=== PATIENT | female | born 1980 | race Native Hawaiian/Other Pacific Islander ===

== ENCOUNTER 2017-02-09 13:27 | Emergency (ER) | payer OTHER ==
[~2017-02-09] VITALS: Ht 149.9 cm; Wt 98.0 kg
[2017-02-09] MEDS ORDERED: DIOV320T6 PO (13:49)
[2017-02-09] MEDS ORDERED: JANU25TA PO (13:50)
[2017-02-09] MEDS ORDERED: SING10TA32 PO (13:50)
[2017-02-09] MEDS ORDERED: CLAR1TAB2 PO (13:52)
[2017-02-09] MEDS ORDERED: FLON1SPR (13:52)
[2017-02-09] MEDS ORDERED: ADV100INH INH (13:54)
[2017-02-09] MEDS ORDERED: GABA-279 PO (13:54)
[2017-02-09] MEDS ORDERED: ALBU17IN INH (13:55)
--- NOTE | 2017-02-09 18:12 | REP ---
Chest x-ray: Two views. History: Productive cough. Comparison chest x-ray August 27, 2015. Findings: The lungs are well inflated and clear. Pleural angles are sharp. Heart size is normal. There is a small zone of linear discoid atelectasis in the right perihilar region. Pulmonary vasculature is not increased. No significant bony abnormality is seen. There are clips in the right upper quadrant of the abdomen post cholecystectomy. Impression: Small zone of linear plate-like atelectasis in the lingular segment of the left upper lobe. Otherwise no active disease. Signed by Jamey Simental MD 02/09/2017 07:21 P
[2017-02-09] MEDS ORDERED: ZITHTAB PO (18:14)
[2017-02-09] MEDS ORDERED: TESS100C PO (18:14)
[2017-02-09 18:23] VITALS: BP 162/94
== END 2017-02-09 18:29 | disposition home or self-care (01) ==
LOC: M ED 14:48
DX: J06.9 Acute upper respiratory infection, unspecified (principal); E11.9 Type 2 diabetes mellitus without complications; I10 Essential (primary) hypertension; J45.909 Unspecified asthma, uncomplicated; R51 Headache; N19 Unspecified kidney failure; Z88.0 Allergy status to penicillin; Z88.6 Allergy status to analgesic agent; Z91.040 Latex allergy status; Z91.013 Allergy to seafood; F17.200 Nicotine dependence, unspecified, uncomplicated; Z79.899 Other long term (current) drug therapy; Z79.51 Long term (current) use of inhaled steroids

== ENCOUNTER 2017-04-09 08:31 | Emergency (ER) | payer OTHER ==
[~2017-04-09] VITALS: Ht 149.9 cm; Wt 101.2 kg
[~2017-04-09 08:31] MED LIST: ADV100INH INH; ALBU17IN INH; CLAR1TAB2 PO; DIOV320T6 PO; FLON1SPR; GABA-279 PO; JANU25TA PO; SING10TA32 PO; TESS100C PO; ZITHTAB PO
[2017-04-09] MEDS ORDERED: ASPIRIN 81 MG CHEW TABLET PO ONE (09:00)
[2017-04-09] MEDS ORDERED: NIFEdipine 10 MG CAP PO ONE (09:15)
[2017-04-09] MEDS ORDERED: VALSARTAN 80 MG TAB (DIOVAN) PO ONE (09:15)
[2017-04-09] MEDS ORDERED: hydroCHLOROthiazide 25 MG TAB PO ONE (09:15)
[2017-04-09 09:24] LABS: BASO # 0.1 K/mm3 (0.0-0.2); BASO % 0.5 % (0.0-1.0); EOS # 0.8 K/mm3 (0.0-0.50); EOS % 6.3 % (0.0-3.0); LARGE UNSTAINED CELL # 0.2 K/mm3 (0.0-0.4); LARGE UNSTAINED CELL % 1.9 % (0.0-4.0); LYMPH # 3.4 K/mm3 (1.5-4.5); LYMPH % 28.1 % (24.0-44.0); MEAN CORPUSCULAR HEMOGLOBIN 24.5 pg (27.0-33.0); MEAN CORPUSCULAR HGB CONC 32.5 g/dl (32.0-36.5); MEAN CORPUSCULAR VOLUME 75.4 fl (80.0-96.0); MONO # 0.6 K/mm3 (0.0-0.8); MONO % 4.9 % (0.0-5.0); NEUTROPHILS % 58.3 % (36.0-66.0); PLATELET COUNT, AUTOMATED 329 k/mm3 (150-450); RED CELL DISTRIBUTION WIDTH 14.7 % (11.5-14.5); WHITE BLOOD COUNT 11.9 K/mm3 (4.0-10.0)
[2017-04-09 09:28] VITALS: BP 249/129
[2017-04-09 10:06] LABS: METHADONE URINE NEGATIVE (NEGATIVE)
[2017-04-09 10:10] LABS: CONTROL LINE HCG INT CTR LINE PRESENT
[2017-04-09 10:11] LABS: ALBUMIN 3.5 GM/DL (3.2-5.2); ALBUMIN/GLOBULIN RATIO 0.85 (1.00-1.93); ALKALINE PHOSPHATASE 87 U/L (45-117); ALT/SGPT 24 U/L (12-78); ANION GAP 8 MEQ/L (8-16); AST/SGOT 14 U/L (15-37); BILIRUBIN,DIRECT 0.1 MG/DL (0.0-0.2); BILIRUBIN,TOTAL 0.4 MG/DL (0.2-1.0); BLOOD UREA NITROGEN 10 MG/DL (7-18); CALCIUM LEVEL 8.4 MG/DL (8.5-10.1); CARBON DIOXIDE LEVEL 26 MEQ/L (21-32); CHLORIDE LEVEL 103 MEQ/L (98-107); CREATININE FOR GFR 0.66 MG/DL (0.55-1.02); GLOMERULAR FILTRATION RATE > 60.0 (>60); GLUCOSE, FASTING 146 MG/DL (70-105); POTASSIUM SERUM 3.3 MEQ/L (3.5-5.1); SODIUM LEVEL 137 MEQ/L (136-145); TOTAL PROTEIN 7.6 GM/DL (6.4-8.2)
--- NOTE | 2017-04-09 11:13 | REP ---
CHEST, TWO VIEWS: COMPARISON: 02/09/2017. There is linear atelectatic change again seen in the lingular segment of the left upper lobe. Findings appear similar to the prior study. No new infiltrates are seen. The heart is normal in size and the mediastinal silhouette is unchanged. Visualized osseous structures appear intact. IMPRESSION: Linear atelectatic change in the lingula appears stable. Signed by Clark Ornelas MD 04/09/2017 04:20 P
[2017-04-09 13:36] VITALS: BP 131/71
--- NOTE | 2017-04-10 08:38 | ECGEPIP ---
Stationary ECG Study [facility] - ED Test Date: 2017-04-09 Pat Name: GIANNI AGUIRRE Department: Room: - Gender: F Floor Covering Contractor: sb : 1980 Requested By: Zachary Felton Order Number: [id number] Reading MD: Saritha Crowder Measurements Intervals [place] Rate: 101 P: 58 NV: 177 QRS: 46 QRSD: 92 T: 1 QT: 373 QTc: 486 Interpretive Statements SINUS TACHYCARDIA NONSPECIFIC T-WAVE ABNORMALITY ABNORMAL RHYTHM ECG SIMILAR 09/26/14 Electronically Signed On 04-10-2017 8:38:28 EDT by Saritha Crowder
--- NOTE | 2017-04-10 08:56 | ECGEPIP ---
Stationary ECG Study [facility] - ED Test Date: 2017-04-09 Pat Name: GIANNI AGUIRRE Department: Room: - Gender: F Lead Pharmacy Technician: sb : 1980 Requested By: Zachary Felton Order Number: [id number] Reading MD: Saritha Crowder Measurements Intervals [place] Rate: 89 P: 34 [place]: 164 QRS: 37 QRSD: 92 T: 0 QT: 388 QTc: 475 Interpretive Statements SINUS RHYTHM NONSPECIFIC T-WAVE ABNORMALITY DECREASED RATE 04/09/17 8:49 Electronically Signed On 04-10-2017 8:56:43 EDT by Saritha Crowder
== END 2017-04-09 13:39 | disposition home or self-care (01) ==
LOC: M ED 09:51
DX: I10 Essential (primary) hypertension (principal); R07.89 Other chest pain; Z91.19 Patient's noncompliance with other medical treatment and regimen; E66.8 Other obesity; Z79.899 Other long term (current) drug therapy; Z79.51 Long term (current) use of inhaled steroids; Z88.0 Allergy status to penicillin; Z91.013 Allergy to seafood; Z88.8 Allergy status to other drugs, medicaments and biological substances; Z91.040 Latex allergy status